=== PATIENT | female | born 1995 | race American Indian/Alaskan Native ===

== ENCOUNTER 2019-08-14 13:50 | Inpatient (IN) | payer MEDICAID ==
[2019-08-14] MEDS ORDERED: BUTORPHANOL 2 MG/1 ML INJ IV PRN ×2 (15:57)
[2019-08-14] MEDS ORDERED: MINERAL OIL 30 ML ORAL LIQD PO PRN (15:57)
[2019-08-14] MEDS ORDERED: fentaNYL 100 MCG/2 ML INJ IV PRN (15:57)
[2019-08-14] MEDS ORDERED: TERBUTALINE 1 MG/1 ML INJ IVP PRN (15:57)
[2019-08-14] MEDS ORDERED: TERBUTALINE 1 MG/1 ML INJ SUB-Q PRN (15:57)
[2019-08-14] MEDS ORDERED: LIDOCAINE (2%) 20 MG/1 ML VIAL 20 ML MDV INFILTRATI ONE (15:57)
[2019-08-14] MEDS ORDERED: OXYTOCIN 20 UNIT/1000ML DRIP 20 UNITS/1,000 ML BAG IV SCH (16:00)
[2019-08-14] MEDS ORDERED: OXYTOCIN DRIP 30 UNITS/500 ML BAG IV SCH (16:00)
--- NOTE | 2019-08-14 16:05 | History and Physical Report ---
History of Present Illness Date of examination: 08/14/19 Date of admission: 08/14/19 15:35 Chief complaint: Contractions History of present illness: 23yo G 3 p 1 1 0 2 @ 39 weeks 5 days her with c/o contractions. She reports +FMs but denies VB or LOF. 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 Her care was complicated by late entry to care, h/o delivery, bacteria vaginosis (was treated), rubella & varicella non- immune, sickle cell trait and UTI (was treated). LABS: A pos, Antibody Screen neg, Pap Smear normal, Rubella NI, VDRL NR, HBsAg neg, HIV neg, Varicella NI, Diabetes Screen 74, GC/CT neg, GBS neg. Past History Past Medical History: no pertinent history, other (sickle cell trait, stomach ulcer) Past Surgical History: no surgical history INTERMEDIATE FRAME TENDER History: chlamydia Family/Genetic History: stroke, other (Asthma) Social history: single, lives with family, full code. denies: smoking, alcohol abuse, prescription drug abuse, IV drug use - Obstetrical History Expected Date of Delivery: 08/16/19 Actual Gestation: 39 Week(s) 5 Day(s) : 3 Para: 2 Hx # Term Pregnancies: 1 Number of Pregnancies: 1 Spontaneous Abortions: 0 Induced : 0 Number of Living Children: 2 #1 Gender: Female year: 2,012 (08/07/2013) Birthweight: 2.948 kg (6 lbs 8 oz) Method of Delivery: Vaginal Gestational age at delivery: 40 Complications: none #2 Gender: Male year: 2,[birth year] (11/16/2015) Birthweight: 2.268 kg (5 lbs) Method of Delivery: Vaginal Gestational age at delivery: 28 Complications: none Medications and Allergies Allergies Allergy/AdvReac Type Severity Reaction Status Date / Time No Known Allergies Allergy Unverified 08/14/19 15:57 Review of Systems All systems: negative - Vital Signs Vital signs: Vital Signs Temp Pulse Resp BP 98.6 F 75 16 125/79 08/14/19 15:07 08/14/19 15:07 08/14/19 15:07 08/14/19 15:07 Temp Pulse Resp BP Pulse Ox 98.6 F 75 16 125/79 08/14/19 15:07 04/06/20 15:15 08/14/19 15:07 08/14/19 15:15 - Obstetrical FHR: auscultation normal, category 1 Uterine Contraction Monitor Mode: External Cervical Dilatation: 5 Cervical Effacement Percentage: 90 station: -2 Uterine Contraction Pattern: Regular Results All other labs normal. Assessment and Plan - Patient Problems (1) 39 weeks gestation of Current Visit: Yes Status: Acute (2) Active labor at term Current Visit: Yes Status: Acute Plan to address problem: Admit to L&D with routine labor orders Start Oxytocin for labor augmentation Anticipate vaginal delivery
[2019-08-14 16:21] LABS: Hematocrit 40.6 % (30.3-42.9); Hemoglobin 13.8 gm/dl (10.1-14.3); Mean Corpuscular HGB Conc 34 % (30-34); Mean Corpuscular Volume 88 fl (79-97); Platelet Count 372 K/mm3 (140-440); Red Blood Count 4.59 M/mm3 (3.65-5.03); Red Cell Distribution Width 13.1 % (13.2-15.2)
[2019-08-14] MEDS ORDERED: DEXMEDETOMIDINE 200 MCG/2 ML VIAL IV ONE (17:47)
[2019-08-14] MEDS: LACTATED RINGERS 1,000 ML IV SCH ×2 (18:02→18:03)
[2019-08-14] MEDS ORDERED: ONDANSETRON 4 MG/2 ML INJ ONE (18:22)
[2019-08-14] MEDS ORDERED: ONDANSETRON 4 MG/2 ML INJ IV ONE (18:27)
[2019-08-14] MEDS: ePHEDrine SULFATE 50 MG/1 ML INJ IV PRN ×3 (18:40→18:44)
[2019-08-14] MEDS ORDERED: NALOXONE 2 MG/2 ML INJ IV PRN (18:44)
[2019-08-14] MEDS ORDERED: ePHEDrine SULFATE 50 MG/1 ML INJ IV PRN (18:44)
[2019-08-14] MEDS ORDERED: fentaNYL-BUPIV 2 MCG/ML-0.125% 200 MCG/100 ML BAG EPIDURAL SCH (19:00)
--- NOTE | 2019-08-14 20:41 | Anesthesia Consultation ---
Anesthesia Consult and Med Hx Date of service: 08/14/19 - Airway Anesthetic Teeth Evaluation: Poor ROM Head & Neck: Adequate Mental/Hyoid Distance: Adequate Mallampati Class: Class II Intubation Access Assessment: Probably Good - Pulmonary Exam CTA: Yes - Cardiac Exam Cardiac Exam: RRR - Pre-Operative Health Status ASA Pre-Surgery Classification: ASA2 Proposed Anesthetic Plan: Epidural - Pulmonary Hx Smoking: No Hx Asthma: No Hx Respiratory Symptoms: No SOB: No COPD: No Home Oxygen Therapy: No Hx Pneumonia: No Hx Sleep Apnea: No - Cardiovascular System Hx Hypertension: No Hx Coronary Artery Disease: No Hx Heart Attack/AMI: No Hx Angina: No Hx Percutaneous Transluminal Coronary Angioplasty (PTCA): No Hx Cardia Arrhythmia: No Hx Pacemaker: No Hx Internal Defibrillator: No Hx Valvular Heart Disease: No Hx Heart Murmur: No Hx Peripheral Vascular Disease: No - Central Nervous System Hx Neuromuscular Disorder: No Hx Seizures: No CVA: No Hx Back Pain: No Hx Psychiatric Problems: No - Gastrointestinal Hx Ulcer: No Hx Gastroesophageal Reflux Disease: Yes - Endocrine Hx Renal Disease: No Hx End Stage Renal Disease: No Hx Cirrhosis: No Hx Liver Disease: No Hx Insulin Dependent Diabetes: No Hx Non-Insulin Dependent Diabetes: No Hx Thyroid Disease: No Hx Hypothyroidism: No Hx Hyperthyroidism: No - Hematic Hx Anemia: No Hx Sickle Cell Disease: No - Other Systems Hx Alcohol Use: No Hx Substance Use: No Hx Cancer: No Hx Obesity: No
--- NOTE | 2019-08-14 22:36 | Procedure Note ---
OB Delivery Note - Delivery Date of Delivery: 08/14/19 (22:06) Surgeon: MARY LAWRENCE (ESSIEM) Estimated blood loss: 100cc - Vaginal Delivery presentation: vertex Delivery position: OA Intrapartum events: meconium Delivery induction: none Delivery augmentation: pitocin Delivery monitor: external FHT, external uterine Route of delivery: Delivery placenta: spontaneous (22:12) Delivery cord: nuchal cord (CAN x1 tight; reduced after delivery of baby), 3 umbilical vessels Episiotomy: none Delivery laceration: none Anesthesia: epidural Delivery comments: of a vigorous term 6 lbs 11.5 oz female with NICU team at bedside secondary to meconium. Baby bulb-suctioned, placed on maternal abdomen and dried. After 3 mins, umbilical cord double-clamped by me and cut by FOB. Spontaneous delivery of placenta, Starla-side presenting at 22:12. Small lochia noted. Fundal massage and IV Pitocin bolus initiated. Fundus F/ML/U-2. Placenta intact, was discarded. Perineum intact. No lacerations noted. Mom and baby in stable condition. - Infant A at 1 minute: 8 at 5 minutes: 9 Infant Gender: Female (6 lbs 11.5 oz (3047 gm); 20 in)
[2019-08-14] MEDS ORDERED: HYDROcodone/ACETAMINOPHEN 5-325 MG TAB PO PRN (22:37)
[2019-08-14] MEDS ORDERED: ACETAMINOPHEN 325 MG TAB PO PRN (22:37)
[2019-08-14] MEDS ORDERED: PROMETHAZINE 25 MG TAB PO PRN (22:37)
[2019-08-14] MEDS ORDERED: ONDANSETRON 4 MG/2 ML INJ IV PRN (22:37)
[2019-08-14] MEDS ORDERED: PROMETHAZINE 25 MG RECT SUPP PR PRN (22:37)
[2019-08-14] MEDS ORDERED: WITCH HAZEL/ GLYCERIN PAD TP PRN (22:37)
[2019-08-14] MEDS ORDERED: MAGNESIUM HYDROXIDE (MOM) ORAL LIQD UDC PO PRN (22:37)
[2019-08-14] MEDS ORDERED: LANOLIN/ZINC/DIMETHICONE (LANSINOH) 7 GM TP PRN (22:37)
[2019-08-14] MEDS ORDERED: diphenhydrAMINE 25 MG CAP PO PRN (22:37)
[2019-08-15] MEDS: IBUPROFEN 600 MG TAB PO SCH ×4 (00:14→17:21)
[2019-08-15 07:56] LABS: Hematocrit 34.6 % (30.3-42.9); Hemoglobin 11.8 gm/dl (10.1-14.3)
[2019-08-15] MEDS: PRENATAL VIT27-FE FUMARATE-FOLIC ACID VIT TAB PO SCH (09:08)
--- NOTE | 2019-08-15 09:38 | Progress Note ---
Assessment and Plan - Patient Problems (1) Status post normal vaginal delivery Current Visit: Yes Status: Acute Plan to address problem: Continue routine PP orders Anticipate d/c home tomorrow F/U at office in 6 wks for routine PP visit Subjective - Subjective Date of service: 08/15/19 Principal diagnosis: S/P ; PPD#1 Interval history: See admission H & P; OB delivery summary; and PP progress notes Patient reports: appetite normal, voiding normally, pain well controlled, flatus, ambulating normally : doing well () Objective - Vital Signs Latest vital signs: Vital Signs Temp Pulse Resp BP BP BP Pulse Ox 08/15/19 08:06 98.0 F 65 16 129/81 100 08/15/19 04:04 98.4 F 60 18 99/60 99 08/15/19 01:15 98.8 F 64 16 124/72 08/14/19 23:34 82 99 08/14/19 23:29 76 98 08/14/19 23:27 68 84/55 08/14/19 23:24 67 99 08/14/19 23:19 79 99 08/14/19 23:14 82 99 08/14/19 23:11 70 99/55 08/14/19 23:09 87 98 08/14/19 23:04 74 100 08/14/19 22:59 74 99 08/14/19 22:54 79 100 08/14/19 22:53 86 157/61 08/14/19 22:49 75 98 08/14/19 22:44 95 H 100 08/14/19 22:39 94 H 100 08/14/19 22:34 88 100 08/14/19 22:32 105 H 87 08/14/19 22:29 75 98 08/14/19 22:27 160 H 143/95 08/14/19 22:25 65 107/60 08/14/19 22:24 51 L 81 L 08/14/19 22:23 86 93 08/14/19 22:19 78 100 08/14/19 22:14 92 H 100 08/14/19 22:09 96 H 100 08/14/19 22:04 101 H 100 08/14/19 22:03 91 H 80 L 08/14/19 21:59 84 100 08/14/19 21:57 166 H 153/104 08/14/19 21:56 101 H 93 08/14/19 21:54 95 H 85 08/14/19 21:50 77 94 08/14/19 21:49 67 99 08/14/19 21:44 71 99 08/14/19 21:42 61 82 L 08/14/19 21:39 56 L 100 08/14/19 21:34 57 L 100 08/14/19 21:33 52 L 81 L 08/14/19 21:29 77 100 08/14/19 21:27 62 84 08/14/19 21:24 57 L 100 08/14/19 21:19 52 L 100 08/14/19 21:14 56 L 100 08/14/19 21:12 55 L 109/57 08/14/19 21:09 58 L 100 08/14/19 21:04 53 L 100 08/14/19 21:02 53 L 18 102/54 100 08/14/19 20:59 52 L 100 08/14/19 20:58 51 L 102/54 08/14/19 20:57 53 L 75 L 08/14/19 20:54 55 L 100 08/14/19 20:49 55 L 100 08/14/19 20:44 55 L 126/64 100 08/14/19 20:39 54 L 100 08/14/19 20:34 55 L 100 08/14/19 20:29 53 L 100 08/14/19 20:27 53 L 116/69 08/14/19 20:24 54 L 100 08/14/19 20:19 56 L 100 08/14/19 20:14 58 L 100 08/14/19 20:12 55 L 120/73 08/14/19 20:09 60 100 08/14/19 20:04 60 100 08/14/19 19:59 67 100 08/14/19 19:57 58 L 133/81 08/14/19 19:54 60 100 08/14/19 19:49 59 L 100 08/14/19 19:44 65 100 08/14/19 19:42 55 L 115/68 08/14/19 19:39 57 L 100 08/14/19 19:34 55 L 100 08/14/19 19:29 59 L 100 08/14/19 19:27 53 L 116/65 08/14/19 19:24 66 100 08/14/19 19:20 97.7 F 643 H 20 116/65 100 08/14/19 19:19 82 100 08/14/19 19:14 64 100 08/14/19 19:13 62 96/52 08/14/19 19:09 72 100 08/14/19 19:06 81 82 L 08/14/19 19:04 64 100 08/14/19 18:59 65 100 08/14/19 18:56 64 91/51 08/14/19 18:54 56 L 100 08/14/19 18:51 58 L 95/59 08/14/19 18:49 58 L 100 08/14/19 18:45 48 L 90/60 08/14/19 18:44 66 100 08/14/19 18:42 67 70/40 08/14/19 18:39 60 100 08/14/19 18:38 62 73/42 08/14/19 18:37 56 L 85/49 08/14/19 18:34 61 74/37 98 08/14/19 18:32 67 80/40 08/14/19 18:31 68 88/48 08/14/19 18:29 69 88/52 100 08/14/19 18:24 71 118/68 08/14/19 18:23 65 100 08/14/19 18:18 80 99 08/14/19 18:16 71 94/50 08/14/19 18:14 86 102/54 08/14/19 18:13 71 100/52 100 08/14/19 18:08 81 100 08/14/19 18:07 75 110/57 08/14/19 18:05 99 H 92 08/14/19 18:04 99 H 125/79 08/14/19 18:03 86 100 08/14/19 17:58 79 100 08/14/19 17:53 75 100 08/14/19 17:48 81 100 08/14/19 17:12 67 109/75 08/14/19 16:50 98.6 F 08/14/19 16:34 89 152/76 08/14/19 15:15 75 125/79 08/14/19 15:07 98.6 F 75 16 125/79 Intake and Output 08/14/19 08/15/19 08/15/19 23:59 07:59 15:59 Intake Total 2.083 600 Output Total 300 1400 Balance -297.917 -800 Intake: IV 2.083 Lactated Ringers 1,000 ml 2.083 @ 125 mls/hr IV DIRECT MICHEAL Rx#:[id number] Oral 600 Output: Urine 1400 Void 1400 Emesis 300 Other: Total, Intake Amount 200 Total, Output Amount 300 600 Estimated Blood Loss 100 - Exam Breasts: Present: normal Cardiovascular: Present: Regular rate Lungs: Present: Normal air movement Abdomen: Present: soft Uterus: Present: firm, fundal height below umbilicus (U-2) Extremities: Present: normal Deep Tendon Reflex Grade: Normal +2 - Labs Labs: Abnormal lab results 08/14/19 Range/Units 16:00 RDW 13.1 L (13.2-15.2) %
--- NOTE | 2019-08-15 09:41 | Discharge Summary ---
Providers - Providers Date of Admission: 08/14/19 15:35 Date of discharge: 08/16/19 (1200) Attending physician: DENISE STEELE Primary care physician: DENISE STEELE Hospitalization Reason for admission: active labor, IUP at term Delivery: Episiotomy: none Laceration: none Other procedures: none complications: none Discharge diagnosis: IUP at term delivered baby: female Hospital course: See admission H & P; OB delivery summary; and PP progress notes Condition at discharge: Good Disposition: DC-01 TO HOME OR SELFCARE - Discharge Diagnoses (1) Status post normal vaginal delivery Status: Acute Plan - Provider Discharge Summary Activity: routine, no sex for 6 weeks, no heavy lifting 4 weeks, no strenuous exercise Diet: routine Instructions: routine Additional instructions: [] Smoking cessation referral if applicable(refer to patient education folder for contact #) [] Refer to [facility] Booklet Call your doctor immediately for: * Fever > 100.5 * Heavy vaginal bleeding ( >1 pad per hour) * Severe persistent headache * Shortness of breath * Reddened, hot, painful area to leg or breast - Follow up plan Follow up: DENISE STEELE MD [Primary Care Provider] - 6 Weeks
--- NOTE | 2019-08-15 14:48 | Post Anesthesia Evaluation ---
- Post Anesthesia Evaluation Patient Participated: Yes Airway Patent: Yes Stable Respiratory Function: Yes Nausea/Vomiting: No Temp > 96.8F: Yes Pain Manageable: Yes Adequeate Hydration: Yes Anesthesia Complications: No Block Receding Appropriately: Yes Patient on Ventilator: No
[2019-08-16] MEDS: IBUPROFEN 600 MG TAB PO SCH ×2 (00:21→05:49)
[2019-08-16] MEDS: PRENATAL VIT27-FE FUMARATE-FOLIC ACID VIT TAB PO SCH (11:05)
[2019-08-16 12:21] VITALS: BP 111/83
== END 2019-08-16 12:00 | disposition home or self-care (01) | DRG 775 ==
LOC: TRG 13:50 → LD 15:35 → OB 23:44
PROVIDERS: ADMIT Obstetrics & Gynecology; ATTEND Obstetrics & Gynecology
PROC: 10E0XZZ Delivery of Products of Conception, External Approach (ICD-10-PCS; principal; 2019-08-14)
PROC: 3E0R3BZ Introduction of Anesthetic Agent into Spinal Canal, Percutaneous Approach (ICD-10-PCS; 2019-08-14)
PROC: 00HU33Z Insertion of Infusion Device into Spinal Canal, Percutaneous Approach (ICD-10-PCS; 2019-08-14)
DX: O77.0 Labor and delivery complicated by meconium in amniotic fluid (principal); O69.1XX0 Labor and delivery complicated by cord around neck, with compression, not applicable or unspecified; O99.62 Diseases of the digestive system complicating childbirth; K21.9 Gastro-esophageal reflux disease without esophagitis; Z3A.39 39 weeks gestation of pregnancy; Z37.0 Single live birth; Z87.440 Personal history of urinary (tract) infections; Z82.3 Family history of stroke; Z82.5 Family history of asthma and other chronic lower respiratory diseases
CPT/HCPCS: 36415; 85014; 85018; 85027; 86592; 86850; 86900; 86901; 96360; 96361; G0378; J2405; J2590; J3490; J7120

== ENCOUNTER 2020-08-03 04:56 | Emergency (ER) | payer MEDICAID ==
[2020-08-03] MEDS ORDERED: ONDANSETRON 4 MG ODT TAB PO ONE (07:32)
[2020-08-03] MEDS ORDERED: ONDANSETRON 4 MG ODT TAB ONE (07:38)
--- NOTE | 2020-08-03 07:39 | Emergency Department Report ---
ED General Adult HPI - General Chief complaint: Dyspnea/Respdistress Stated complaint: ABDOMINAL PAIN Time Seen by Provider: 08/03/20 07:16 Source: patient Mode of arrival: Ambulatory Limitations: No Limitations - History of Present Illness Initial comments: 24-year-old female she reports feeling "seasick", symptoms started yesterday around 7 AM. She states that she ate at a [employer] the night before and when she woke up she had the sensation of nauseousness. She vomited x3.she denies fever no diarrhea positive chills no cough no chest pain no shortness of breath no urinary symptoms. Patient does not have pain she just reports queasiness and discomfort when she presses in the epigastric region. Her past medical history is a sickle cell trait. she has no chronic medical conditions. Last menstrual period beginning of July. Patient appears to be in no acute distress. Location: abdomen Severity scale (0 -10): 0 Quality: constant Associated Symptoms: loss of appetite, malaise, nausea/vomiting. denies: confusion, chest pain, cough, diaphoresis, fever/chills, headaches, syncope, weakness Treatments Prior to Arrival: none - Related Data Previous Rx's Medication Instructions Recorded Last Taken Type Ondansetron [Zofran Odt] 4 mg PO Q8HR #12 tab.rapdis 08/03/20 Unknown Rx Allergies Allergy/AdvReac Type Severity Reaction Status Date / Time No Known Allergies Allergy Verified 08/03/20 08:01 ED Review of Systems ROS: Stated complaint: ABDOMINAL PAIN Other details as noted in HPI Comment: All other systems reviewed and negative Constitutional: chills. denies: fever, malaise Eyes: denies: eye pain, eye discharge ENT: denies: ear pain, throat pain, dental pain, hearing loss, epistaxis, congestion Respiratory: denies: cough, orthopnea, shortness of breath, SOB with exertion Cardiovascular: denies: chest pain, palpitations, dyspnea on exertion, edema, syncope, paroxysmal nocturnal dyspnea Endocrine: denies: excessive sweating, flushing, intolerance to cold, increased hunger, increased thirst, increased urine Gastrointestinal: nausea. denies: abdominal pain Genitourinary: denies: dysuria, hematuria Skin: as per HPI ED Past Medical Hx - Past Medical History Hx Hypertension: No Hx Heart Attack/AMI: No Hx Congestive Heart Failure: No Hx Diabetes: No Hx Deep Vein Thrombosis: No Hx Liver Disease: No Hx Renal Disease: No Hx Sickle Cell Disease: No Hx Seizures: No Hx Asthma: No Hx COPD: No Hx HIV: No - Surgical History Hx Pacemaker: No Hx Internal Defibrillator: No - Social History Smoking Status: Current Some Day Smoker Substance Use Type: None - Medications Home Medications: Home Medications Medication Instructions Recorded Confirmed Last Taken Type Ondansetron [Zofran Odt] 4 mg PO Q8HR #12 tab.rapdis 08/03/20 Unknown Rx ED Physical Exam - General Limitations: No Limitations General appearance: alert, in no apparent distress - Head Head exam: Present: normal inspection - Eye Eye exam: Present: normal appearance - ENT ENT exam: Present: normal exam, mucous membranes moist - Neck Neck exam: Present: normal inspection - Respiratory Respiratory exam: Present: normal lung sounds bilaterally. Absent: respiratory distress, wheezes, rales - Cardiovascular Cardiovascular Exam: Present: regular rate, normal heart sounds - GI/Abdominal GI/Abdominal exam: Present: soft, normal bowel sounds, other (Mild tenderness in the epigastric region with palpation). Absent: organomegaly - Rectal Rectal exam: Present: deferred - Extremities Exam Extremities exam: Present: normal inspection - Back Exam Back exam: Present: normal inspection - Neurological Exam Neurological exam: Present: alert, oriented X3 - Psychiatric Psychiatric exam: Present: normal affect - Skin Skin exam: Present: warm, dry, intact, normal color. Absent: rash ED Course Vital Signs 08/03/20 08/03/20 05:03 07:56 Temperature 98.9 F Pulse Rate 77 Respiratory 16 16 Rate Blood Pressure 119/74 O2 Sat by Pulse 100 100 Oximetry - Reevaluation(s) Reevaluation #1: 08/03/20 09:50 Patient resting comfortably in no acute distress. I review all results with patient she verbalizes understanding I discussed her slightly her mildly elevated AST and ALT and the need to just follow-up with her primary care doctor to have them monitored and evaluated. She currently denies any pain she is able to take oral fluids and eat crackers. ED Medical Decision Making - Lab Data Result diagrams: 08/03/20 08:00 08/03/20 08:00 - Medical Decision Making This is a 24-year-old female came to the ER with complaints of stomach feeling nauseated feeling "sea-sick "after eating at [employer] the night prior. She had no complaints of fever no chills no cough no urinary symptoms she had 3 episodes of vomiting and no diarrhea. Blood work revealed a slightly elevated AST at 90 and ALT at 118. This patient's sodium was slightly decreased at 134. Her WBC is 11.6 her urine is within normal limits and negative test. On reevaluation patient reports feeling better her nausea is relieved by Zofran. This is most likely gastroenteritis plan to continue Zofran at home and follow-up with primary care doctor Critical Care Time: No Critical care attestation.: If time is entered above; I have spent that time in minutes in the direct care of this critically ill patient, excluding procedure time. ED Disposition Clinical Impression: Gastroenteritis Disposition: - TO HOME OR SELFCARE Is pt being admited?: No Does the pt Need Aspirin: No Condition: Stable Instructions: Viral Gastroenteritis, Adult, E. Coli Infection Additional Instructions: Eat a bland diet for 2 to 3 days stay away from milk or spicy foods that would upset your stomach drink Sprite adonis ovi chicken broth beef broth crackers. Take Zofran every 8 hours as needed for nausea. Follow-up with your primary care doctor in 2 to 3 days or return to the emergency room for any worsening symptoms such as inability to keep food down vomiting more than 6-8 times a day fever abdominal pain Prescriptions: Ondansetron [Zofran Odt] 4 mg PO Q8HR #12 tab.rapdis Referrals: PRIMARY MD CHELSY [Primary Care Provider] - 3-5 Days CITLALY MCGEE MD [Staff Physician] - 3-5 Days Time of Disposition: 09:57
[2020-08-03 08:01] LABS: Bilirubin,Urine NEG (Negative); Blood,Urine NEG (Negative); Color,Urine Straw (Yellow); Protein,Urine <15 mg/dL mg/dL (Negative); RBC,Urine < 1.0 /HPF (0.0-6.0); Urobilinogen,Urine < 2.0 mg/dL (<2.0)
[2020-08-03 08:27] LABS: HCG Qualitative,Urine Negative (Negative)
[2020-08-03 09:04] LABS: Hematocrit 45.9 % (30.3-42.9); Hemoglobin 15.8 gm/dl (10.1-14.3); Mean Corpuscular HGB Conc 34 % (30-34); Mean Corpuscular Volume 89 fl (79-97); Platelet Count 341 K/mm3 (140-440); Red Blood Count 5.16 M/mm3 (3.65-5.03); Red Cell Distribution Width 13.3 % (13.2-15.2)
[2020-08-03 09:29] LABS: Alanine Aminotransferase 118 units/L (7-56); Albumin 4.2 g/dL (3.9-5); Blood Urea Nitrogen 8 mg/dL (7-17); Calcium 8.8 mg/dL (8.4-10.2); Hemolysis Index 22
[2020-08-03 09:30] LABS: BUN/Creatinine Ratio 16
[2020-08-03 10:30] VITALS: BP 124/68
== END 2020-08-03 10:30 | disposition home or self-care (01) ==
LOC: ED 04:56
DX: K52.9 Noninfective gastroenteritis and colitis, unspecified (principal); F17.200 Nicotine dependence, unspecified, uncomplicated; Z79.899 Other long term (current) drug therapy
CPT/HCPCS: 36415; 80053; 81001; 81025; 85027; Q0162